=== PATIENT | female | born 1950 | race Caucasian/White ===

== ENCOUNTER → 2020-06-02 | Outpatient (CLI) | payer MEDICARE, OTHER | LOC: RAD 07:23 | DX: K21.9 Gastro-esophageal reflux disease without esophagitis (principal); K29.70 Gastritis, unspecified, without bleeding ==

== ENCOUNTER 2022-04-10 08:00 | Outpatient (RCR) | payer MEDICARE, OTHER | END 2022-05-08 | disposition home or self-care (01) | LOC: PT | DX: G25.81 Restless legs syndrome (principal) ==